=== PATIENT | female | born 1990 | race Caucasian/White ===

== ENCOUNTER 2018-01-25 12:23 | Emergency (ER) | payer SELFPAY ==
[2018-01-25 12:40] VITALS: BP 118/87
[2018-01-25 13:06] LABS: Bacteria,Urine 1+ /HPF (Negative); Bilirubin,Urine NEG (Negative); Blood,Urine NEG (Negative); Color,Urine Yellow (Yellow); Mucus,Urine FEW /HPF; Protein,Urine <15 mg/dL mg/dL (Negative); Urobilinogen,Urine < 2.0 mg/dL (<2.0)
[2018-01-25 13:10] LABS: HCG Qualitative,Urine Negative (Negative)
[2018-01-25 13:15] LABS: Amphetamine Screen,Urine PRESUMPTIVE NEGATIVE; Benzodiazepines Screen,Urine PRESUMPTIVE NEGATIVE; Cocaine Screen,Urine PRESUMPTIVE NEGATIVE; Methadone Screen,Urine PRESUMPTIVE NEGATIVE; Opiate Screen,Urine PRESUMPTIVE NEGATIVE
[2018-01-25] MEDS ORDERED: ZOFRAN ODT PO ONE (13:21)
[2018-01-25 13:38] LABS: Cannabinoid Screen,Urine PRESUMPTIVE POSITIVE
--- NOTE | 2018-01-25 14:00 | Emergency Department Report ---
ED Anxiety HPI - General Chief Complaint: Anxiety Stated Complaint: BAD NERVES Time Seen by Provider: 01/25/18 13:02 Source: patient Mode of arrival: Ambulatory - History of Present Illness Initial Comments: 28 year old femal comes in for panic attacks. Patient has a history of schizoaffective, bipolar, ADHD, Anxiety and depression. Reports that she has not follow up with anyone in the last year. Reports that her job is very stressful. She works as a caregiver. Reports that she was admited to a mental hospital in [facility]. MD Complaint: anxiety, heart racing, shortness of breath -: month(s) Symptoms: palpitations Place: home, work Severity: moderate Provoking factors: emotional stress, work/job stress Improves With: deep breaths, sleep Worsens With: thinking about event Associated symptoms: chest pain, shortness of breath, palpitations - Related Data Home Medications: Previous Rx's Medication Instructions Recorded Last Taken Type LORazepam [Ativan] 0.5 mg PO BID #6 tab 01/25/18 Unknown Rx Allergies/Adverse Reactions: Allergies Allergy/AdvReac Type Severity Reaction Status Date / Time No Known Allergies Allergy Unverified 01/25/18 12:34 ED Review of Systems ROS: Stated complaint: BAD NERVES Other details as noted in HPI Constitutional: denies: chills, fever Eyes: denies: eye pain, eye discharge, vision change ENT: denies: ear pain, throat pain Respiratory: denies: cough, shortness of breath, wheezing Cardiovascular: denies: chest pain, palpitations Endocrine: no symptoms reported Gastrointestinal: nausea Genitourinary: denies: urgency, dysuria, discharge Musculoskeletal: denies: back pain, joint swelling, arthralgia Skin: denies: rash, lesions Neurological: denies: headache, weakness, paresthesias Psychiatric: anxiety, depression. denies: auditory hallucinations, visual hallucinations, homicidal thoughts, suicidal thoughts Hematological/Lymphatic: denies: easy bleeding, easy bruising ED Past Medical Hx - Past Medical History Previous Medical History?: Yes Hx Psychiatric Treatment: Yes (schizoaffective, Bipolar, ADHD, OCD, Anxiety, Depression) - Surgical History Past Surgical History?: No - Social History Smoking Status: Current Every Day Smoker Substance Use Type: Alcohol, Marijuana, Prescribed - Medications Home Medications: Home Medications Medication Instructions Recorded Confirmed Last Taken Type LORazepam [Ativan] 0.5 mg PO BID #6 tab 01/25/18 Unknown Rx ED Physical Exam - General Limitations: No Limitations General appearance: alert, in no apparent distress - Head Head exam: Present: atraumatic, normocephalic - Eye Eye exam: Present: normal appearance - ENT ENT exam: Present: mucous membranes moist - Neck Neck exam: Present: normal inspection - Respiratory Respiratory exam: Present: normal lung sounds bilaterally. Absent: respiratory distress - Cardiovascular Cardiovascular Exam: Present: regular rate, normal rhythm. Absent: systolic murmur, diastolic murmur, rubs, gallop - GI/Abdominal GI/Abdominal exam: Present: soft, normal bowel sounds - Extremities Exam Extremities exam: Present: normal inspection - Back Exam Back exam: Present: normal inspection - Neurological Exam Neurological exam: Present: alert, oriented X3 - Psychiatric Psychiatric exam: Present: normal affect, normal mood. Absent: homicidal ideation, suicidal ideation - Skin Skin exam: Present: warm, dry, intact, normal color. Absent: rash ED Course Vital Signs 01/25/18 12:34 Temperature 98.1 F Pulse Rate 94 H Respiratory 22 Rate Blood Pressure 118/87 O2 Sat by Pulse 99 Oximetry ED Medical Decision Making - Medical Decision Making Patient has been seen by me and Dr. Stephens. Discuss with patient that she needs to follow up with mental health. I will refer her to one. Patient denies any HI/SI at this time. Critical care attestation.: If time is entered above; I have spent that time in minutes in the direct care of this critically ill patient, excluding procedure time. ED Disposition Clinical Impression: Anxiety Disposition: DC-01 TO HOME OR SELFCARE Is pt being admited?: No Does the pt Need Aspirin: No Condition: Stable Instructions: Anxiety (ED) Additional Instructions: Need to follow up with Mental health. Take medication as prescribed. Prescriptions: LORazepam [Ativan] 0.5 mg PO BID #6 tab Referrals: PRIMARY CARE, [Primary Care Provider] - 3-5 Days [facility] [Outside] - 3-5 Days [facility] [Outside] - 3-5 Days Forms: Work/School Release Form(ED)
--- NOTE | 2018-01-25 14:15 | Emergency Department Report ---
Chief Complaint: Anxiety Stated Complaint: BAD NERVES Time Seen by Provider: 01/25/18 13:02 - HPI History of Present Illness: The patient is a 28 yo female who presents for evaluations of anxiety symptoms. The patient reports 2 weeks of on and off palpitations, constant worrying, episodic nausea and vomiting. She shares that his symptoms began after starting a new job 2 weeks ago. She submits a long history of chronic anxiety. The patient denies fever, headache, chest pain, dyspnea, hemoptysis, unexplained weight loss or weight gain, heat or cold intolerance, skin, hair, or nail changes, neuro deficits, homicidal ideations, or auditory or visual hallucinations. - Exam Vital Signs: Vital Signs 01/25/18 12:34 Temperature 98.1 F Pulse Rate 94 H Respiratory 22 Rate Blood Pressure 118/87 O2 Sat by Pulse 99 Oximetry MSE screening note: Focused history and physical exam performed. Due to findings the following was ordered: ED Disposition for MSE Condition: Stable Referrals: PRIMARY CARE, [Referring] - 3-5 Days
== END 2018-01-25 14:08 | disposition home or self-care (01) ==
LOC: ED 12:23
DX: F41.9 Anxiety disorder, unspecified (principal); F31.9 Bipolar disorder, unspecified; F90.9 Attention-deficit hyperactivity disorder, unspecified type; F25.9 Schizoaffective disorder, unspecified; F17.200 Nicotine dependence, unspecified, uncomplicated; F12.10 Cannabis abuse, uncomplicated; F42.9 Obsessive-compulsive disorder, unspecified
CPT/HCPCS: 80307; 81001; 81025; 99283; Q0162

== ENCOUNTER 2018-03-10 07:00 | Emergency (ER) | payer OTHER ==
[2018-03-10 10:20] LABS: Basophils # (Auto) 0.1 K/mm3 (0.0-0.1); Basophils % (Auto) 1.3 % (0.0-1.8); Eosinophils # (Auto) 0.2 K/mm3 (0.0-0.4); Hematocrit 39.3 % (30.3-42.9); Hemoglobin 13.4 gm/dl (10.1-14.3); Lymphocytes % (Auto) 28.8 % (13.4-35.0); Mean Corpuscular HGB Conc 34 % (30-34); Mean Corpuscular Hemoglobin 33 pg (28-32); Mean Corpuscular Volume 96 fl (79-97); Monocytes # (Auto) 0.6 K/mm3 (0.0-0.8); Platelet Count 240 K/mm3 (140-440); Red Cell Distribution Width 13.1 % (13.2-15.2)
[2018-03-10 10:36] LABS: BUN/Creatinine Ratio 35; Blood Urea Nitrogen 14 mg/dL (7-17); Hemolysis Index 2
--- NOTE | 2018-03-10 13:09 | Emergency Department Report ---
ED Psych HPI - General Chief Complaint: Psych Stated Complaint: AFS[address] STRE[address] Time Seen by Provider: 03/10/18 12:56 Source: patient Mode of arrival: Ambulatory Limitations: No Limitations - History of Present Illness Initial Comments: She is a 28-year-old female presents to emergency room with complaints of suicidal ideations with plan. Patient states she wants to run in traffic and kill herself. Patient states that she has a lot of thoughts of hurting herself in many different ways. Patient states she is also but does not know how far along. Patient denies chest pain shortness of breath and abdominal pain. Patient denies other physical symptoms. MD Complaint: suicidal ideation, feels depressed -: Sudden Associated Psychiatric Symptoms: depression, suicidal ideation, racing thoughts History of same: Yes Quality: constant Improves With: medication, therapy Worsens With: none Context: significant life stressor Associated Symptoms: denies: confusion, headache, shortness of breath, nausea, vomiting, syncope, insomnia Treatments Prior to Arrival: placed on mental he If Self Harm: admits thoughts of, has plan - Related Data Previous Rx's Medication Instructions Recorded Last Taken Type LORazepam [Ativan] 0.5 mg PO BID #6 tab 01/25/18 Unknown Rx Allergies Allergy/AdvReac Type Severity Reaction Status Date / Time No Known Allergies Allergy Unverified 01/25/18 12:34 ED Review of Systems ROS: Stated complaint: AFS[address]RE[address] Other details as noted in HPI Comment: All other systems reviewed and negative Constitutional: denies: chills, fever Eyes: denies: eye pain, eye discharge, vision change ENT: denies: ear pain, throat pain Respiratory: denies: cough, shortness of breath, wheezing Cardiovascular: denies: chest pain, palpitations Endocrine: no symptoms reported Gastrointestinal: denies: abdominal pain, nausea, diarrhea Genitourinary: denies: urgency, dysuria, discharge Musculoskeletal: denies: back pain, joint swelling, arthralgia Skin: denies: rash, lesions Neurological: denies: headache, weakness, paresthesias Psychiatric: anxiety, depression, suicidal thoughts Hematological/Lymphatic: denies: easy bleeding, easy bruising ED Past Medical Hx - Past Medical History Previous Medical History?: Yes Hx Psychiatric Treatment: Yes (schizoaffective, Bipolar, ADHD, OCD, Anxiety, Depression) - Surgical History Past Surgical History?: No - Family History Family history: no significant - Social History Smoking Status: Current Every Day Smoker Substance Use Type: None - Medications Home Medications: Home Medications Medication Instructions Recorded Confirmed Last Taken Type LORazepam [Ativan] 0.5 mg PO BID #6 tab 01/25/18 Unknown Rx ED Physical Exam - General Limitations: No Limitations General appearance: alert, in no apparent distress - Head Head exam: Present: atraumatic, normocephalic - Eye Eye exam: Present: normal appearance - ENT ENT exam: Present: mucous membranes moist - Neck Neck exam: Present: normal inspection - Respiratory Respiratory exam: Present: normal lung sounds bilaterally. Absent: respiratory distress - Cardiovascular Cardiovascular Exam: Present: regular rate, normal rhythm. Absent: systolic murmur, diastolic murmur, rubs, gallop - GI/Abdominal GI/Abdominal exam: Present: soft, normal bowel sounds - Extremities Exam Extremities exam: Present: normal inspection - Back Exam Back exam: Present: normal inspection - Neurological Exam Neurological exam: Present: alert, oriented X3 - Psychiatric Psychiatric exam: Present: depressed, anxious, suicidal ideation, other (labile mood noted) - Skin Skin exam: Present: warm, dry, intact, normal color. Absent: rash ED Course Vital Signs 03/10/18 03/10/18 07:39 12:55 Temperature 98.2 F Pulse Rate 73 Respiratory 16 18 Rate Blood Pressure 110/73 O2 Sat by Pulse 100 98 Oximetry - Reevaluation(s) Reevaluation #1: Due to patient's suicidal ideations and plan to hurt herself, we'll 1013 patient. 03/10/18 13:09 Reevaluation #2: Patient medically cleared and awaiting mental health evaluation and placement 03/10/18 16:33 ED Medical Decision Making - Lab Data Result diagrams: 03/10/18 09:54 03/10/18 09:54 Critical care attestation.: If time is entered above; I have spent that time in minutes in the direct care of this critically ill patient, excluding procedure time. ED Disposition Clinical Impression: Suicidal ideations, Depression Disposition: DC/TX-65 PSY HOSP/PSY UNIT Is pt being admited?: No Does the pt Need Aspirin: No Condition: Stable Time of Disposition: 16:34
[2018-03-10 21:03] LABS: Bilirubin,Urine NEG (Negative); Blood,Urine NEG (Negative); Color,Urine Yellow (Yellow); Mucus,Urine FEW /HPF; Protein,Urine <15 mg/dL mg/dL (Negative); Urobilinogen,Urine < 2.0 mg/dL (<2.0)
[2018-03-10 21:11] LABS: Amphetamine Screen,Urine PRESUMPTIVE NEGATIVE; Benzodiazepines Screen,Urine PRESUMPTIVE NEGATIVE; Cocaine Screen,Urine PRESUMPTIVE NEGATIVE; Methadone Screen,Urine PRESUMPTIVE NEGATIVE; Opiate Screen,Urine PRESUMPTIVE NEGATIVE
[2018-03-10 21:24] LABS: Cannabinoid Screen,Urine PRESUMPTIVE POSITIVE
[2018-03-11 13:08] VITALS: BP 99/65
== END 2018-03-11 09:00 ==
LOC: ED 07:00 → EEVIPCON 07:00 → ED 03-11 09:00
DX: F31.9 Bipolar disorder, unspecified (principal); F20.9 Schizophrenia, unspecified; F41.9 Anxiety disorder, unspecified; F17.200 Nicotine dependence, unspecified, uncomplicated
CPT/HCPCS: 36415; 80048; 80307; 81001; 84703; 85025; 99285; G0480; 80320

== ENCOUNTER 2019-04-11 22:23 | Outpatient (CLI) | payer MEDICAID ==
[2019-04-11 23:58] VITALS: BP 108/64
== END 2019-04-12 02:37 | disposition home or self-care (01) ==
LOC: TRG 22:23
PROVIDERS: ATTEND Obstetrics & Gynecology
DX: O47.1 False labor at or after 37 completed weeks of gestation (principal); Z3A.39 39 weeks gestation of pregnancy
CPT/HCPCS: 59025

== ENCOUNTER 2019-04-14 22:00 | Inpatient (IN) | payer MEDICAID ==
[2019-04-15] MEDS ORDERED: AMPICILLIN/NS 2 GM/100 ML 2 GM/100 ML BAG IV ONE (00:04)
[2019-04-15] MEDS ORDERED: SUBLIMAZE IV PRN (00:04)
[2019-04-15] MEDS ORDERED: XYLOCAINE 2% INFILTRATI ONE (00:04)
[2019-04-15] MEDS ORDERED: BRETHINE SUB-Q PRN (00:04)
--- NOTE | 2019-04-15 00:13 | History and Physical Report ---
History of Present Illness Date of examination: 04/15/19 Date of admission: 04/14/19 22:00 Chief complaint: Contractions History of present illness: 29 year old presents with contractions; states she was scheduled for IOL today due to obesity. Patient denies leaking of fluid or vaginal bleeding. Patient reports active movement. Patient states she has received care at [facility]. Patient reports the following problems during : anemia (supplemented with iron), obesity, excessive weight gain, GBS positive. records and labs are not available. labs have been drawn and US has been ordered to check placental location and GA/EFW. Will request records from [facility]. Past History Past Medical History: other (obesity) Past Surgical History: no surgical history [facility] History: denies: abnormal PAP smear, chlamydia, gonorrhea, hepatitis B, hepatitis C, herpes, HIV, syphilis, trichomonas Family/Genetic History: diabetes, hypertension, cancer Social history: single, lives with family, full code. denies: smoking, alcohol abuse, prescription drug abuse, IV drug use - Obstetrical History Expected Date of Delivery: 04/16/19 Actual Gestation: 39 Week(s) 6 Day(s) : 2 Para: 0 Hx # Term Pregnancies: 0 Number of Pregnancies: 0 Spontaneous Abortions: 1 Induced : 0 Number of Living Children: 0 Medications and Allergies Allergies Allergy/AdvReac Type Severity Reaction Status Date / Time No Known Allergies Allergy Verified 04/11/19 23:54 Home Medications Medication Instructions Recorded Confirmed Last Taken Type Ferrous Sulfate [Iron 325 MG] 1 tab PO DAILY 04/12/19 04/12/19 04/10/19 History Vit-Fe Fumar-FA [ 1 tab PO DAILY 04/12/19 04/12/19 04/11/19 History Vitamin] Active Meds: Active Medications Ephedrine Sulfate (Ephedrine Sulfate) 10 mg IV Q2M PRN PRN Reason: Hypotension Fentanyl (Sublimaze) 100 mcg IV Q2H PRN PRN Reason: Labor Pain Oxytocin/Sodium Chloride (Pitocin/Ns 20 Unit/1000ml Drip) 20 units in 1,000 mls @ 125 mls/hr IV DIRECT ROBERT Lactated Ringer's (Lactated Ringers) 1,000 mls @ 125 mls/hr IV DIRECT ROBERT Ampicillin Sodium (Ampicillin/Ns 2 Gm/100 Ml) 2 gm in 100 mls @ 100 mls/hr IV ONCE ONE; Protocol Stop: 04/15/19 01:03 Ampicillin Sodium (Ampicillin/Ns 1 Gm/50 Ml) 1 gm in 50 mls @ 100 mls/hr IV Q4HR ROBERT; Protocol Lidocaine (Xylocaine 2%) 20 ml INFILTRATI ONCE ONE Stop: 04/15/19 00:05 Terbutaline Sulfate (Brethine) 0.25 mg SUB-Q ONCE PRN PRN Reason: Hyperstimulation/Hypertonicity Review of Systems All systems: negative (contractions) Gastrointestinal: no abdominal pain, no nausea, no vomiting Genitourinary: contractions, no vaginal bleeding, no vaginal discharge, no leakage of fluid, no genital sores Neurological: no seizures, no headaches, no change in speech - Vital Signs Vital signs: Vital Signs Pulse BP 118 H 118/57 04/14/19 23:16 04/14/19 23:16 Temp Pulse Resp BP Pulse Ox 111 H 118/57 98 04/15/19 00:10 04/14/19 23:16 04/15/19 00:10 - Physical Exam Abdomen: Positive: normal appearance, soft. Negative: distention, tenderness, guarding, rigidity Genitourinary (Female): Positive: normal external genitalia, normal perenium. Negative: perineal/vulvar lesions (no lesions seen on carefule exam with bright light upon admission) Anus/Rectum: Positive: normal perianal skin Extremities: Positive: normal. Negative: tenderness, edema - Obstetrical FHR: category 1 Uterine Contraction Monitor Mode: External Cervical Dilatation: 5 Cervical Effacement Percentage: 90 station: -2 Uterine Contraction Pattern: Irregular Uterine Contraction Intensity: Mild Results Result Diagrams: 04/15/19 00:29 All other labs normal. Assessment and Plan A: at 39 6/7 weeks gestation. GBS positive. Labor. Class 3 obesity. No records or labs available. P: Admit. Continuous EFM. GBS prophylaxis. Obtain records for chart.
[2019-04-15] MEDS ORDERED: PITOCin/NS 20 UNIT/1000ML DRIP 20 UNITS/1,000 ML BAG IV SCH (01:00)
[2019-04-15 01:05] LABS: Hematocrit 32.8 % (30.3-42.9); Hemoglobin 11.3 gm/dl (10.1-14.3); Mean Corpuscular HGB Conc 34 % (30-34); Mean Corpuscular Volume 90 fl (79-97); Platelet Count 221 K/mm3 (140-440); Red Blood Count 3.64 M/mm3 (3.65-5.03); Red Cell Distribution Width 15.4 % (13.2-15.2)
[2019-04-15 01:25] LABS: Hepatitis C Virus Antibody Non-Reactive (NonReactive)
[2019-04-15] MEDS: LACTATED RINGERS 1,000 ML IV SCH ×3 (02:01→17:34)
--- NOTE | 2019-04-15 02:33 | Ultrasound Report ---
PROCEDURE: US OB FOLLOW UP TECHNIQUE: Real-time transabdominal sonography of the uterus, placenta, amniotic fluid, adnexa, and fetus was performed with image documentation. Measurements were obtained to determine age/size. M-mode Doppler was used to document heartbeat. ADDITIONAL GESTATION: None HISTORY: EDC, EFW, placental location COMPARISONS: None. FINDINGS: IUP: Single live intrauterine gestation. Position: Cephalic Placental position: Fundal and grade 2, without previa . Amniotic fluid volume Normal. ESTEBAN is 8.1 cm. Cardiac activity: Regular rhythm at 151 bpm. ANATOMY: Not performed due to late gestational age. BIOMETRY: Biparietal diameter: 8.9 cm corresponding to 35 weeks and 6 days. Head circumference: 31.3 cm) to 35 weeks. abdominal circumference: 33.7 cm corresponding to 37 weeks and 5 days. Femur length: 7.4 cm corresponding to 38 weeks. Ratio biometry: Normal . Estimated Weight: 3155 grams +/- grams. ounces +/- .ounces. . percentile. Mean Gestational Age (composite criteria) based on today's measurements: 36 weeks and 5 days. Estimated Due Date (earliest scan): 05/08/2019. IMPRESSION: Single live intrauterine gestation at 36 weeks 5 days. Estimated due date: 05/08/2019. This document is electronically signed by Frank Coburn MD., April 15 2019 03:31:13 AM ET
[2019-04-15] MEDS: AMPICILLIN/NS 1 GM/50 ML 1 GM/50 ML BAG IV SCH ×2 (07:35→12:19)
--- NOTE | 2019-04-15 07:55 | Event Note ---
Date: 04/15/19 Category 1 heart rate tracing. Await records this AM. Mild contractions. SVE 5-6//-1/BBOW.
--- NOTE | 2019-04-15 10:53 | Progress Note ---
Assessment and Plan - Patient Problems (1) 39 weeks gestation of Onset Date: 04/15/19 Current Visit: Yes Status: Acute Plan to address problem: A: IUP @ 39 6/7 weeks Morbid obesity +GBS P: Continue with pitocin induction of labor IV Ampicillin (2) Morbid (severe) obesity due to excess calories Onset Date: 04/15/19 Current Visit: Yes Status: Acute Subjective - Subjective Date of service: 04/15/19 Principal diagnosis: IUP @ 39 6/7 weeks; Morbid obesity; +GBS Interval history: Pt is a 29 year old BF EDC 04/16/19; EGA 39 6/7 weeks presented for IOL due to morbid obesity. She denies contractions, leaking of fluid or vaginal bleeding, and reports active movement. She received care at [facility] and co-managed by [facility] due to morbid obesity, records are available and GBS is positive. Patient reports: movement normal, no new complaints, no loss of fluid, no vaginal bleeding, no contractions Objective - Vital Signs Vital Signs: Vital Signs - 12hr 04/14/19 04/14/19 04/14/19 23:16 23:19 23:24 Temperature Pulse Rate 118 H 124 H 118 H Respiratory Rate Blood Pressure 118/57 Blood Pressure [Right] O2 Sat by Pulse 97 98 Oximetry 04/14/19 04/14/19 04/14/19 23:29 23:33 23:34 Temperature Pulse Rate 120 H 115 H 119 H Respiratory Rate Blood Pressure Blood Pressure [Right] O2 Sat by Pulse 99 86 99 Oximetry 04/14/19 04/14/19 04/14/19 23:39 23:44 23:49 Temperature Pulse Rate 114 H 111 H 109 H Respiratory Rate Blood Pressure Blood Pressure [Right] O2 Sat by Pulse 99 99 98 Oximetry 04/14/19 04/14/19 04/15/19 23:54 23:59 00:05 Temperature Pulse Rate 109 H 109 H 113 H Respiratory Rate Blood Pressure Blood Pressure [Right] O2 Sat by Pulse 100 99 98 Oximetry 04/15/19 04/15/19 04/15/19 00:10 00:15 00:20 Temperature Pulse Rate 111 H 112 H 113 H Respiratory Rate Blood Pressure Blood Pressure [Right] O2 Sat by Pulse 98 98 99 Oximetry 04/15/19 04/15/19 04/15/19 00:25 02:14 02:16 Temperature 97.0 F L Pulse Rate 103 H 103 H 105 H Respiratory 20 Rate Blood Pressure 118/75 Blood Pressure 118/75 [Right] O2 Sat by Pulse 98 98 Oximetry 04/15/19 04/15/19 04/15/19 02:19 02:24 02:29 Temperature Pulse Rate 110 H 108 H 107 H Respiratory Rate Blood Pressure Blood Pressure [Right] O2 Sat by Pulse 99 99 99 Oximetry 04/15/19 04/15/19 04/15/19 02:34 02:39 02:44 Temperature Pulse Rate 102 H 107 H 114 H Respiratory Rate Blood Pressure Blood Pressure [Right] O2 Sat by Pulse 99 99 98 Oximetry 04/15/19 04/15/19 04/15/19 02:49 02:54 02:59 Temperature Pulse Rate 115 H 105 H 104 H Respiratory Rate Blood Pressure Blood Pressure [Right] O2 Sat by Pulse 98 97 99 Oximetry 04/15/19 04/15/19 04/15/19 03:04 03:09 03:14 Temperature Pulse Rate 102 H 115 H 112 H Respiratory Rate Blood Pressure Blood Pressure [Right] O2 Sat by Pulse 100 99 97 Oximetry 04/15/19 04/15/19 04/15/19 03:19 03:24 03:29 Temperature Pulse Rate 105 H 103 H 110 H Respiratory Rate Blood Pressure Blood Pressure [Right] O2 Sat by Pulse 98 98 98 Oximetry 04/15/19 04/15/19 04/15/19 03:34 03:39 03:44 Temperature Pulse Rate 105 H 109 H 105 H Respiratory Rate Blood Pressure Blood Pressure [Right] O2 Sat by Pulse 97 96 97 Oximetry 04/15/19 04/15/19 04/15/19 03:49 03:54 03:59 Temperature Pulse Rate 112 H 104 H 103 H Respiratory Rate Blood Pressure Blood Pressure [Right] O2 Sat by Pulse 96 98 97 Oximetry 04/15/19 04/15/19 04/15/19 04:04 04:09 04:14 Temperature Pulse Rate 98 H 98 H 102 H Respiratory Rate Blood Pressure Blood Pressure [Right] O2 Sat by Pulse 97 97 97 Oximetry 04/15/19 04/15/19 04/15/19 04:19 04:24 04:29 Temperature Pulse Rate 101 H 99 H 101 H Respiratory Rate Blood Pressure Blood Pressure [Right] O2 Sat by Pulse 97 97 97 Oximetry 04/15/19 04/15/19 04/15/19 04:34 04:39 04:44 Temperature Pulse Rate 96 H 95 H 94 H Respiratory Rate Blood Pressure Blood Pressure [Right] O2 Sat by Pulse 98 98 97 Oximetry 04/15/19 04/15/19 04/15/19 04:49 04:54 04:59 Temperature Pulse Rate 94 H 103 H 101 H Respiratory Rate Blood Pressure Blood Pressure [Right] O2 Sat by Pulse 97 98 97 Oximetry 04/15/19 04/15/19 04/15/19 05:04 05:09 05:14 Temperature Pulse Rate 101 H 123 H 99 H Respiratory Rate Blood Pressure Blood Pressure [Right] O2 Sat by Pulse 97 97 97 Oximetry 04/15/19 04/15/19 04/15/19 05:19 05:24 05:29 Temperature Pulse Rate 101 H 100 H 98 H Respiratory Rate Blood Pressure Blood Pressure [Right] O2 Sat by Pulse 97 97 98 Oximetry 04/15/19 04/15/19 05:34 07:18 Temperature Pulse Rate 105 H 100 H Respiratory Rate Blood Pressure 118/65 Blood Pressure [Right] O2 Sat by Pulse 98 Oximetry - Exam Breasts: deferred Abdomen: Present: normal appearance, soft Uterus: Present: normal FHR: category 1 Uterine Contraction Monitor Mode: External Cervical Dilatation: 5 (per nurse) Uterine Contraction Pattern: Irregular Uterine Tone Measurement Phase: Contraction Uterine Contraction Intensity: Mild - Labs Labs: Abnormal Labs 04/15/19 00:29 RBC 3.64 L RDW 15.4 H Laboratory Results - last 24 hr 04/15/19 04/15/19 04/15/19 00:29 00:29 00:29 WBC 10.8 RBC 3.64 L Hgb 11.3 Hct 32.8 MCV 90 MCH 31 MCHC 34 RDW 15.4 H Plt Count 221 Hemoglobin A1c Hep Bs Antigen Non-reactive Hepatitis C Antibody Non-reactive HIV 1&2 Antibody Rapid HIV P24 Antigen Rubella IgG Antibody Immune Blood Type Antibody Screen MADDIE Antibody Screen 04/15/19 04/15/19 04/15/19 00:29 00:29 00:38 WBC RBC Hgb Hct MCV MCH MCHC RDW Plt Count Hemoglobin A1c 5.9 Hep Bs Antigen Hepatitis C Antibody HIV 1&2 Antibody Rapid Non react HIV P24 Antigen Non react Rubella IgG Antibody Blood Type O POSITIVE Antibody Screen TNR MADDIE Antibody Screen Negative
[2019-04-15] MEDS: PITOCin/NS 30 UNIT/500ML 30 UNITS/500 ML BAG IV SCH ×2 (12:20→17:34)
[2019-04-15] MEDS ORDERED: NARCAN 2 MG/2 ML IV PRN (20:52)
--- NOTE | 2019-04-15 20:56 | Anesthesia Consultation ---
Anesthesia Consult and Med Hx Date of service: 04/15/19 - Airway Anesthetic Teeth Evaluation: Good ROM Head & Neck: Adequate Mental/Hyoid Distance: Adequate Mallampati Class: Class III Intubation Access Assessment: Probably Good - Pulmonary Exam CTA: Yes - Cardiac Exam Cardiac Exam: RRR - Pre-Operative Health Status ASA Pre-Surgery Classification: ASA3 Proposed Anesthetic Plan: Epidural - Pulmonary Hx Smoking: No Hx Asthma: No Hx Respiratory Symptoms: No SOB: No COPD: No Home Oxygen Therapy: No Hx Pneumonia: No Hx Sleep Apnea: No - Cardiovascular System Hx Hypertension: No Hx Coronary Artery Disease: No Hx Heart Attack/AMI: No Hx Angina: No Hx Percutaneous Transluminal Coronary Angioplasty (PTCA): No Hx Cardia Arrhythmia: No Hx Pacemaker: No Hx Internal Defibrillator: No Hx Valvular Heart Disease: No Hx Heart Murmur: No Hx Peripheral Vascular Disease: No - Central Nervous System Hx Neuromuscular Disorder: No Hx Seizures: No Hx Psychiatric Problems: Yes (schizo effective disorder prescribed medication last taken 08/02) - Gastrointestinal Hx Ulcer: No Hx Gastroesophageal Reflux Disease: Yes - Endocrine Hx Renal Disease: No Hx End Stage Renal Disease: No Hx Cirrhosis: No Hx Liver Disease: No Hx Insulin Dependent Diabetes: No Hx Non-Insulin Dependent Diabetes: No Hx Thyroid Disease: No Hx Hypothyroidism: No Hx Hyperthyroidism: No - Hematic Hx Anemia: No Hx Sickle Cell Disease: No - Other Systems Hx Alcohol Use: Yes Hx Substance Use: No Hx Cancer: No Hx Obesity: Yes (BMI 54)
[2019-04-15] MEDS ORDERED: fentaNYL-BUPIV 2 MCG/ML-0.125% 200 MCG/100 ML BAG EPIDURAL SCH (21:00)
[2019-04-15] MEDS ORDERED: SUBLIMAZE ONE (21:29)
[2019-04-15] MEDS ORDERED: NEO SYNEPHRINE/NS Syringe(OR USE) IV ONE (21:48)
[2019-04-15] MEDS ORDERED: TORADOL ONE (22:38)
[2019-04-15] MEDS ORDERED: VERSED ONE (22:38)
--- NOTE | 2019-04-16 04:31 | Procedure Note ---
OB Delivery Note - Delivery Date of Delivery: 04/16/19 Surgeon: AHSAN BEGUM Estimated blood loss: 200cc - Vaginal Delivery presentation: vertex Delivery position: OA Intrapartum events: PROM->1hr before delivery, shoulder dystocia Delivery induction: oxytocin Delivery augmentation: rupture of membranes, pitocin Delivery monitor: external FHT, external uterine Route of delivery: Delivery placenta: spontaneous Delivery cord: nuchal cord (x1), 3 umbilical vessels Episiotomy: none Delivery laceration: none Anesthesia: epidural Delivery comments: delivered OA with tight nuchal cord x 1 after near shoulder dystocia resolved with Karli, and infant placed on Mom's chest for [id number] bonding and delayed cord clamping, cut by Dad - A at 1 minute: 7 at 5 minutes: 9 Infant Gender: Female ([id number])
[2019-04-16] MEDS ORDERED: MILK OF MAGNESIA PO PRN (04:32)
[2019-04-16] MEDS ORDERED: ZOFRAN IV PRN (04:32)
[2019-04-16] MEDS ORDERED: PHENERGAN PR PRN (04:32)
[2019-04-16] MEDS ORDERED: DULCOLAX PR PRN (04:32)
[2019-04-16] MEDS ORDERED: TUCKS PAD TP PRN (04:32)
[2019-04-16] MEDS ORDERED: BENADRYL PO PRN (04:32)
[2019-04-16] MEDS ORDERED: PHENERGAN PO PRN (04:32)
[2019-04-16] MEDS ORDERED: TYLENOL PO PRN (04:32)
[2019-04-16] MEDS ORDERED: LANSINOH TP PRN (04:32)
[2019-04-16] MEDS ORDERED: SODIUM CHLORIDE FLUSH SYRINGE 10 ML IV NR (05:00)
[2019-04-16] MEDS ORDERED: PITOCin/NS 20 UNIT/1000ML DRIP 20 UNITS/1,000 ML BAG IV SCH (05:00)
[2019-04-16] MEDS: PRENATAL VITAMIN PO SCH (11:15)
[2019-04-16] MEDS: FEOSOL PO SCH ×2 (11:15→21:48)
[2019-04-16] MEDS: COLACE PO SCH ×2 (11:18→21:48)
[2019-04-16] MEDS: IBUPROFEN PO SCH ×3 (11:18→18:33)
[2019-04-16 16:40] LABS: Hematocrit 33.1 % (30.3-42.9); Hemoglobin 11.1 gm/dl (10.1-14.3)
[2019-04-16] MEDS: NORCO 5/325 PO PRN (21:00)
[2019-04-17] MEDS: NORCO 5/325 PO PRN ×2 (01:47→05:07)
[2019-04-17] MEDS ORDERED: BOOSTRIX IM ONE (06:00)
[2019-04-17] MEDS ORDERED: M-M-R II VACCINE SUB-Q ONE (06:00)
[2019-04-17] MEDS: PRENATAL VITAMIN PO SCH (09:00)
[2019-04-17] MEDS: IBUPROFEN PO SCH ×2 (09:00→20:59)
[2019-04-17] MEDS: COLACE PO SCH ×2 (09:10→21:00)
[2019-04-17] MEDS: FEOSOL PO SCH ×2 (09:10→21:00)
--- NOTE | 2019-04-17 12:34 | Progress Note ---
Assessment and Plan - Patient Problems (1) 39 weeks gestation of Onset Date: 04/15/19 Current Visit: Yes Status: Resolved (2) Morbid (severe) obesity due to excess calories Onset Date: 04/15/19 Current Visit: Yes Status: Chronic (3) (normal spontaneous vaginal delivery) Onset Date: 04/17/19 Current Visit: Yes Status: Resolved Plan to address problem: A: S/P - PPD #1 Doing well Asymptomatic anemia - stable P: May go home tomorrow. Subjective - Subjective Date of service: 04/17/19 Principal diagnosis: s/p - PPD #1 Interval history: Pt is feeling well without complaints. Bleeding improved. Patient reports: appetite normal, voiding normally, pain well controlled, flatus, ambulating normally, no dizzy ambulation, no nauseated [place]: doing well, nursing well, bottle feeding Objective - Vital Signs Latest vital signs: Vital Signs Temp Pulse Resp BP BP Pulse Ox 04/17/19 08:22 98.0 F 92 H 18 110/50 98 04/16/19 23:31 98.5 F 98 H 20 113/67 98 04/16/19 22:52 98.2 F 112 H 20 123/83 97 04/16/19 15:11 98.0 F 121 H 20 142/88 99 Intake and Output 04/16/19 04/17/19 04/17/19 22:59 06:59 14:59 Intake Total 240 Output Total 800 Balance -800 240 Intake: Oral 240 Output: Urine 800 Void 800 Other: Total, Intake Amount 240 Total, Output Amount 800 # Voids Void 1 1 - Exam Breasts: Present: deferred Abdomen: Present: normal appearance, soft Uterus: Present: normal, firm, fundal height below umbilicus Extremities: Present: normal - Labs Labs: Laboratory Tests 04/15/19 04/15/19 04/15/19 00:29 00:29 00:29 WBC 10.8 RBC 3.64 L Hgb 11.3 Hct 32.8 MCV 90 MCH 31 MCHC 34 RDW 15.4 H Plt Count 221 Hemoglobin A1c RPR Nonreactive Hep Bs Antigen Hepatitis C Antibody Non-reactive HIV 1&2 Antibody Rapid HIV P24 Antigen Rubella IgG Antibody Immune Blood Type Antibody Screen MADDIE Antibody Screen 06/01/19 06/01/19 06/01/19 00:29 00:29 00:29 WBC RBC Hgb Hct MCV MCH MCHC RDW Plt Count Hemoglobin A1c 5.9 RPR Hep Bs Antigen Non-reactive Hepatitis C Antibody HIV 1&2 Antibody Rapid Non react HIV P24 Antigen Non react Rubella IgG Antibody Blood Type Antibody Screen MADDIE Antibody Screen 04/15/19 04/16/19 00:38 16:10 WBC RBC Hgb 11.1 Hct 33.1 MCV MCH MCHC RDW Plt Count Hemoglobin A1c RPR Hep Bs Antigen Hepatitis C Antibody HIV 1&2 Antibody Rapid HIV P24 Antigen Rubella IgG Antibody Blood Type O POSITIVE Antibody Screen TNR MADDIE Antibody Screen Negative
--- NOTE | 2019-04-17 13:13 | Discharge Summary ---
Providers - Providers Date of Admission: 04/14/19 22:00 Date of discharge: 04/17/19 Attending physician: AHSAN BEGUM 04/16/19 12:43 Consult to Case Management [CONS] Routine Services Needed at Discharge: [employer] Notified:: ALEX Phone number called:: [phone] Was contact made?: Yes If yes, spoke with:: JAMES Time called:: 12:45 Comment:: Family situation, living situation Primary care physician: AHSAN BEGUM Hospitalization Reason for admission: induction of labor, IUP at term, other (Morbid obesity) Delivery: Episiotomy: none Laceration: none Other procedures: none complications: none Discharge diagnosis: IUP at term delivered baby: female Hospital course: Unremarkable. Condition at discharge: Good Disposition: DC-01 TO HOME OR SELFCARE - Discharge Diagnoses (1) 39 weeks gestation of Status: Resolved (2) Morbid (severe) obesity due to excess calories Status: Chronic (3) (normal spontaneous vaginal delivery) Status: Resolved Plan - Discharge Medications Prescriptions: Ferrous Sulfate [Feosol 325 MG tab] 325 mg PO BID #60 tablet Ibuprofen [Motrin 600 MG tab] 600 mg PO Q6HR #30 tablet Vit-Fe Fumar-FA [ Vitamin] 1 each PO QDAY #30 tablet - Provider Discharge Summary Activity: routine, no sex for 6 weeks, no heavy lifting 4 weeks, no strenuous exercise Diet: routine Instructions: routine Additional instructions: [] Smoking cessation referral if applicable(refer to patient education folder for contact #) [] Refer to [facility]'s [facility] Booklet Call your doctor immediately for: * Fever > 100.5 * Heavy vaginal bleeding ( >1 pad per hour) * Severe persistent headache * Shortness of breath * Reddened, hot, painful area to leg or breast * Drainage or odor from incision. * Keep incision clean and dry at all times and follow doctor's instructions regarding bathing/showering - Follow up plan Follow up: AHSAN BEGUM MD [Primary Care Provider] - 6 Weeks WILL KEVIN CNM [Advanced Practice Nurse] - 6 Weeks
[2019-04-18] MEDS: IBUPROFEN PO SCH ×2 (02:34→09:19)
[2019-04-18] MEDS: PRENATAL VITAMIN PO SCH (09:18)
[2019-04-18] MEDS: FEOSOL PO SCH (09:18)
[2019-04-18] MEDS: COLACE PO SCH (09:18)
[2019-04-18 16:33] VITALS: BP 117/79
== END 2019-04-18 20:14 | disposition home or self-care (01) | DRG 775 ==
LOC: LD 22:00 → OB 04-16 07:40
PROVIDERS: ADMIT Obstetrics & Gynecology; ATTEND Obstetrics & Gynecology
PROC: 3E033VJ Introduction of Other Hormone into Peripheral Vein, Percutaneous Approach (ICD-10-PCS; 2019-04-14)
PROC: 10E0XZZ Delivery of Products of Conception, External Approach (ICD-10-PCS; principal; 2019-04-16)
PROC: 3E0R3BZ Introduction of Anesthetic Agent into Spinal Canal, Percutaneous Approach (ICD-10-PCS; 2019-04-16)
PROC: 00HU33Z Insertion of Infusion Device into Spinal Canal, Percutaneous Approach (ICD-10-PCS; 2019-04-16)
PROC: 3E0234Z Introduction of Serum, Toxoid and Vaccine into Muscle, Percutaneous Approach (ICD-10-PCS; 2019-04-17)
DX: O99.214 Obesity complicating childbirth (principal); O99.824 Streptococcus B carrier state complicating childbirth; E66.01 Morbid (severe) obesity due to excess calories; F25.9 Schizoaffective disorder, unspecified; K21.9 Gastro-esophageal reflux disease without esophagitis; O99.344 Other mental disorders complicating childbirth; O99.62 Diseases of the digestive system complicating childbirth; O66.0 Obstructed labor due to shoulder dystocia; O42.92 Full-term premature rupture of membranes, unspecified as to length of time between rupture and onset of labor; O69.1XX0 Labor and delivery complicated by cord around neck, with compression, not applicable or unspecified; Z3A.39 39 weeks gestation of pregnancy; Z37.0 Single live birth; Z23 Encounter for immunization; Z83.3 Family history of diabetes mellitus; Z82.49 Family history of ischemic heart disease and other diseases of the circulatory system; Z80.9 Family history of malignant neoplasm, unspecified; O90.81 Anemia of the puerperium; D64.9 Anemia, unspecified; Z68.43 Body mass index [BMI] 50.0-59.9, adult
CPT/HCPCS: 36415; 59025; 76816; 83036; 85014; 85018; 85027; 86592; 86706; 86762; 86803; 86850; 86900; 86901; 87806; 90707; G0378; J0290; J1885; J2250; J2370; J2590; J3010; J7120